=== PATIENT | female | born 1965 | race Caucasian/White ===

== ENCOUNTER 2018-10-07 09:20 | Day surgery (SDC) | payer OTHER ==
[~2018-10-07] VITALS: Ht 172.7 cm; Wt 70.7 kg
[~2018-10-07 09:20] MED LIST: Acidophilus1 EAC1 PO; CEPH500 PO; COLE1 PO; IBUP800 PO; Prevalite Pac4 G/PKT PO; RXOXYACE PO; VITAMIN D34000 UNIT PO
== END 2018-10-07 12:02 | disposition home or self-care (01) ==
LOC: ORSCSDS 09:20
PROVIDERS: Student in an Organized Health Care Education/Training Program
PROC: 0DBM8ZX Excision of Descending Colon, Via Natural or Artificial Opening Endoscopic, Diagnostic (ICD-10-PCS; principal; 2018-10-07 10:45)
PROC: 0DBG8ZX Excision of Left Large Intestine, Via Natural or Artificial Opening Endoscopic, Diagnostic (ICD-10-PCS; principal; 2018-10-07 10:45)
PROC: 0DBF8ZX Excision of Right Large Intestine, Via Natural or Artificial Opening Endoscopic, Diagnostic (ICD-10-PCS; principal; 2018-10-07 10:45)
DX: R19.7 Diarrhea, unspecified (principal); D12.4 Benign neoplasm of descending colon; R19.4 Change in bowel habit; R14.0 Abdominal distension (gaseous); R10.9 Unspecified abdominal pain; Z79.899 Other long term (current) drug therapy
CPT/HCPCS: 88305; J2704; J7120

== ENCOUNTER → 2019-02-21 | Outpatient (CLI) | payer OTHER ==
[2019-02-25 15:07] LABS: HPV 16 Negative (Negative); HPV 18 Negative (Negative); HPV OTHER HR TYPES Negative (Negative)
== END | disposition home or self-care (01) ==
LOC: LAB SHORT 14:42 → LAB 14:42
PROVIDERS: Nurse Practitioner Women's Health
DX: Z12.4 Encounter for screening for malignant neoplasm of cervix (principal); Z91.89 Other specified personal risk factors, not elsewhere classified
CPT/HCPCS: 87624; G0123